=== PATIENT | female | born 1960 | race Caucasian/White ===

== ENCOUNTER → 2016-07-04 | Outpatient (CLI) | payer OTHER ==
[~2016-07-04] MED LIST: ANUC25SU PR; DEXI60CA PO; ENBR50IN2 SQ; ESTR2TAB PO; FEXO15TA PO; FOLI5CAP PO; HYDR1CRE28 RECTAL; INSULIN HUMAN REGULAR 1,000 UNITS/10 ML VIAL SQ PRN; LACTATED RINGER'S 1000 ML IV SCH; METOPROLOL TARTRATE 25 MG TAB PO PRN; MIDAZOLAM HCL 2 MG/2 ML VIAL IV ONE; MULT-65 PO; NEXI20CA PO; PROPOFOL 200 MG/20 ML AMP IV ONE; SODIUM CHLORID 0.9% 500 ML IV SCH; TYLE650T9; ZANTTAB9 PO; ZOFR8TAB4 SL
[2016-07-04 07:05] VITALS: BP 133/81; PULSE 78; RESP 16; TEMP 98.1; O2SAT 100
[2016-07-04 09:57] VITALS: TEMP 97.7
[2016-07-04 10:15] VITALS: BP 111/74; PULSE 76; RESP 16; O2SAT 100
--- NOTE | 2016-07-04 19:42 | EKG ---
Date Performed: 07/04/2016 Time Performed: 07:36:46 PTAGE: 56 years EKG: Sinus rhythm INCOMPLETE RIGHT BUNDLE BRANCH BLOCK BORDERLINE ECG NO PREVIOUS TRACING DOCTOR: Ilda Hill Interpretating Date/Time 07/04/2016 19:41:30
--- NOTE | 2016-07-06 13:29 | MR ---
cc: AISHA SHANKS M.D. DATE: 07/06/2016 TYPE OF PROCEDURE: Upper endoscopy and colonoscopy DATE OF : 1960 INDICATION Procedures evaluation of gastroesophageal reflux. Screening colonoscopy, photographs and biopsies were taken. PREMEDICATION Administered by anesthesiology. MONITORING: Monitoring was accomplished with pulse oximeter, EKG, blood pressure monitor. PROCEDURE NOTE After informed consent was obtained and the procedure risks, benefits were explained including the risks of bleeding, sepsis, perforation, risk of anesthesia, the patient was placed left lateral position. The video endoscope was surgery esophagus under direct visualization. Vocal cords were briefly seen appeared to be a slightly red but otherwise unremarkable. The scope was passed into the esophagus. Esophageal mucosa was carefully inspected. There appeared to be some subtle changes of a linear markings perhaps consistent with eosinophilic esophagitis. Biopsies were taken at the distal and proximal portion of the esophagus. The Z-line appeared to be normal otherwise a small hiatus hernia was traversed. The stomach was entered. Gastric mucosa was visualized down to be normal throughout the retroflex view the cardia and fundus were unremarkable. The scope was passed through the pyloric ring the first, second, third portion of the duodenum. Duodenum was unremarkable. Scope was then gradually withdrawn. The patient repositioned in the colonoscope was certain rectum and advanced easily to the cecum and terminal ileum. Mucosa throughout appeared to be grossly normal. The scope was gradually withdrawn in the sigmoid colon one diminutive polyp was seen. This was biopsied. The patient had mild diverticulosis in the distal descending and the proximal sigmoid region. In the retroflex view in the rectum. The patient did have grade 1 internal hemorrhoids with slight erythema. The scope was removed. The patient on procedure well. No immediate complications were noted. IMPRESSION 1. Rule out possible eosinophilic esophagitis. 2. Small hiatal hernia. 3. Diminutive polyps sigmoid biopsied and removed by cold biopsy polypectomy. 4. Mild diverticulosis. 5. Grade 1 internal hemorrhoids with slight erythema. PLAN: 1. We will follow up on the biopsies taken today. 2. Would continue aggressive acid suppression 3. Discuss further therapy as an outpatient. 4. Will discuss with the patient as well. MD LUCERO Bartholomew/tonia /9:58 AM /12:36 PM
== END ==
LOC: HEND 06:51
PROVIDERS: ATTEND Internal Medicine Gastroenterology
DX: Z12.11 Encounter for screening for malignant neoplasm of colon (principal); D12.5 Benign neoplasm of sigmoid colon; K64.0 First degree hemorrhoids; K57.30 Diverticulosis of large intestine without perforation or abscess without bleeding; K20.0 Eosinophilic esophagitis; K21.0 Gastro-esophageal reflux disease with esophagitis; K44.9 Diaphragmatic hernia without obstruction or gangrene; R12 Heartburn; I45.10 Unspecified right bundle-branch block
CPT/HCPCS: 00810; 43239; 45380; 88305; 93005; J2250; J3010

== ENCOUNTER → 2017-09-19 | Outpatient (CLI) | payer OTHER ==
[~2017-09-19] MED LIST changes: +AMOX875T PO; -ANUC25SU PR; -DEXI60CA PO; -FEXO15TA PO; -FOLI5CAP PO; -HYDR1CRE28 RECTAL; -INSULIN HUMAN REGULAR 1,000 UNITS/10 ML VIAL SQ PRN; -LACTATED RINGER'S 1000 ML IV SCH; -METOPROLOL TARTRATE 25 MG TAB PO PRN; -MIDAZOLAM HCL 2 MG/2 ML VIAL IV ONE; -NEXI20CA PO; +NEXI40CA PO; -PROPOFOL 200 MG/20 ML AMP IV ONE; +RANI1TAB5 PO; -SODIUM CHLORID 0.9% 500 ML IV SCH; -TYLE650T9; -ZANTTAB9 PO; -ZOFR8TAB4 SL
--- NOTE | 2017-09-19 09:58 | RADRPT ---
EXAM DATE: 09/19/2017 9:56 AM EDT AGE/SEX: 57 years / Female INDICATIONS: Bilateral calf pain and swelling. CLINICAL DATA: This is the patient's initial encounter. Patient reports that signs and symptoms have been present for 1 day and indicates a pain score of 0/10. MEDICAL/SURGICAL HISTORY: Gastroesophageal reflux disease. Rheumatoid arthritis. Esophagitis. Fibromyalgia. Hysterectomy. Tonsillectomy. Lumpectomy. Ovarian cyst removal. Right rotator cuff re pair. back surgery. COMPARISON: No prior [facility] exams available for comparison. TECHNIQUE: Venous ultrasound of both lower extremities was performed from the inguinal ligament to t he proximal calf. Real-time, color Doppler and spectral tracing, compression and augmentation techni ques were used. FINDINGS: Right Leg: There is normal compressibility of the deep venous system from the inguinal region to the proximal calf. No echogenic clot is seen in the lumen of the common femoral, femoral, popliteal, an d posterior tibial veins. There is a normal response of the venous system to proximal and distal aug mentation and respiration. Left Leg: There is normal compressibility of the deep venous system from the inguinal region to the proximal calf. No echogenic clot is seen in the lumen of the common femoral, femoral, popliteal, and posterior tibial veins. There is a normal response of the venous system to proximal and distal augm entation and respiration. CONCLUSION: 1. The study is negative for bilateral lower extremity deep venous thrombosis. Electronically signed by: Daryn Shepherd MD 09/19/2017 9:57 AM EDT
== END ==
LOC: HRAD 09:03
DX: M79.604 Pain in right leg (principal); M79.605 Pain in left leg; M79.89 Other specified soft tissue disorders
CPT/HCPCS: 93970